=== PATIENT | male | born 1995 | race Caucasian/White ===

== ENCOUNTER 2017-08-16 16:48 | Emergency (ER) | payer BC ==
[~2017-08-16] VITALS: Ht 182.9 cm; Wt 52.8 kg
[2017-08-16] MEDS ORDERED: NAPROSYN500 MG PO (17:49)
[2017-08-16 18:36] VITALS: BP 147/93
== END 2017-08-16 18:38 | disposition home or self-care (01) ==
LOC: EME 16:48
PROC: 2W38X1Z Immobilization of Right Upper Extremity using Splint (ICD-10-PCS; principal; 2017-08-16)
DX: S52.134A Nondisplaced fracture of neck of right radius, initial encounter for closed fracture (principal); S62.174A Nondisplaced fracture of trapezium [larger multangular], right wrist, initial encounter for closed fracture; V00.131A Fall from skateboard, initial encounter; Y93.51 Activity, roller skating (inline) and skateboarding; F17.200 Nicotine dependence, unspecified, uncomplicated
CPT/HCPCS: 73080; 73090; 73110; 99281; 99284